=== PATIENT | male | born 1975 | race Caucasian/White ===

== ENCOUNTER 2017-09-19 23:55 | Inpatient (IN) | payer OTHER ==
[~2017-09-19] VITALS: Ht 185.4 cm; Wt 74.3 kg
[2017-09-20] MEDS ORDERED: ONDANSETRON 2MG/ML, 2ML IVPush ONE (01:00)
[2017-09-20] MEDS ORDERED: CLINDAMYCIN PMX 600MG/50ML 50 ML IV ONE (01:00)
[2017-09-20] MEDS ORDERED: SODIUM CHLORIDE FLUSH 10ML SYR IVF ONE (01:00)
[2017-09-20] MEDS ORDERED: morphine SULFATE 10 MG/ML, 1ML IVPush PRN (01:00)
[2017-09-20] MEDS ORDERED: morphine SULFATE 10 MG/ML, 1ML ONE (01:01)
[2017-09-20] MEDS ORDERED: ONDANSETRON 2MG/ML, 2ML ONE ×2 (01:02→13:53)
[2017-09-20] MEDS ORDERED: CLINDAMYCIN PMX 600MG/50ML 50 ML ONE (01:02)
[2017-09-20 01:05] LABS: HEMATOCRIT 41.9 % (39.2-51.8); HEMOGLOBIN 14.3 g/dL (13.7-18.0); WHITE BLOOD COUNT 14.2 x10^3/uL (3.4-10)
[2017-09-20 01:15] LABS: BLOOD UREA NITROGEN 18 mg/dL (7-18)
[2017-09-20] MEDS ORDERED: BACITRACIN ZINC OINT 500U/GM, 0.9 GM ONE (01:31)
[2017-09-20] MEDS ORDERED: ENOXAPARIN 40 MG/0.4 ML SQ SCH (02:00)
[2017-09-20] MEDS ORDERED: LORazepam 2 MG/ML, 1ML IM PRN (02:00)
[2017-09-20] MEDS: CLINDAMYCIN PMX 900MG/50ML 100 ML IV SCH ×3 (02:28→18:26)
[2017-09-20] MEDS: HYDROmorphone 1 MG/ML, 1ML IM PRN ×2 (03:36→05:13)
[2017-09-20 09:01] VITALS: BP 123/82
[2017-09-20] MEDS: SODIUM CHLORIDE FLUSH 10ML SYR IVF SCH ×2 (09:11→21:00)
[2017-09-20] MEDS ORDERED: KETOROLAC 30 MG/1 ML IVPush STA (09:55)
[2017-09-20] MEDS: HYDROmorphone 1 MG/ML, 1ML IV PRN ×2 (11:32→11:43)
[2017-09-20] MEDS ORDERED: D5%-0.45NACL+KCL 20MEQ 1,000 ML IV SCH (12:00)
[2017-09-20] MEDS: D5%-0.9% NACL+KCL 20MEQ 1,000 ML IV SCH ×2 (12:55→19:54)
[2017-09-20] MEDS ORDERED: FENTANYL PF 100 MCG/2ML ONE ×2 (13:24→13:26)
[2017-09-20] MEDS ORDERED: MIDAZOLAM 1 MG/ML, 2ML ONE (13:24)
[2017-09-20] MEDS ORDERED: ONDANSETRON 2MG/ML, 2ML IVPush PRN (13:30)
[2017-09-20] MEDS ORDERED: HYDROmorphone 1 MG/ML, 1ML IV PRN (13:30)
[2017-09-20] MEDS ORDERED: FENTANYL PF 100 MCG/2ML IV PRN (13:30)
[2017-09-20] MEDS ORDERED: PROPOFOL 10 MG/ML, 20ML ONE (13:52)
[2017-09-20] MEDS ORDERED: DEXAMETHASONE 4 MG/ML, 1ML ONE (13:52)
[2017-09-20] MEDS ORDERED: HYDROmorphone 1 MG/ML, 1ML ONE (13:52)
[2017-09-20] MEDS ORDERED: EPINEPHRINE 1 MG/ML, 1ML ONE (13:56)
[2017-09-20] MEDS ORDERED: BUPIVACAINE/PF 0.5% ONE (13:56)
[2017-09-20] MEDS ORDERED: HYDROcodone/APAP 7.5-325MG/15ML UDC PO PRN (15:00)
[2017-09-20] MEDS ORDERED: OXYcodone 5 MG/5 ML ORAL.SOL UDC PO PRN (15:00)
[2017-09-20 16:00] VITALS: BP 124/84
[2017-09-20] MEDS: HYDROmorphone 1 MG/ML, 1ML IVPush PRN ×2 (17:06→19:54)
[2017-09-20 18:51] VITALS: BP 122/68
[2017-09-20] MEDS: LORazepam 2 MG/ML, 1ML IVPush PRN (19:54)
[2017-09-21 00:08] VITALS: BP 122/80
[2017-09-21] MEDS: HYDROmorphone 1 MG/ML, 1ML IV PRN ×3 (01:25→21:22)
[2017-09-21] MEDS: CLINDAMYCIN PMX 900MG/50ML 100 ML IV SCH ×3 (03:02→18:10)
[2017-09-21] MEDS: LORazepam 2 MG/ML, 1ML IVPush PRN ×3 (03:21→21:58)
[2017-09-21 04:05] VITALS: BP 123/84
[2017-09-21] MEDS: D5%-0.9% NACL+KCL 20MEQ 1,000 ML IV SCH (04:10)
[2017-09-21 05:35] LABS: WHITE BLOOD COUNT 11.2 x10^3/uL (3.4-10)
[2017-09-21 05:50] LABS: BLOOD UREA NITROGEN 13 mg/dL (7-18)
[2017-09-21 07:25] VITALS: BP 125/74
[2017-09-21] MEDS: ENOXAPARIN 30 MG/0.3 ML SQ SCH ×2 (10:40→21:22)
[2017-09-21] MEDS: KETOROLAC 30 MG/1 ML IVPush SCH ×3 (10:40→21:22)
[2017-09-21 14:05] VITALS: BP 107/68
[2017-09-21 19:25] VITALS: BP 101/71
[2017-09-22 00:50] VITALS: BP 135/86
[2017-09-22] MEDS: CLINDAMYCIN PMX 900MG/50ML 100 ML IV SCH ×3 (01:37→17:43)
[2017-09-22] MEDS: LORazepam 2 MG/ML, 1ML IVPush PRN ×4 (01:38→20:45)
[2017-09-22] MEDS: KETOROLAC 30 MG/1 ML IVPush SCH ×2 (04:35→10:36)
[2017-09-22 07:23] VITALS: BP 116/79
[2017-09-22] MEDS: ENOXAPARIN 30 MG/0.3 ML SQ SCH ×2 (10:36→20:46)
[2017-09-22 14:37] VITALS: BP 116/74
[2017-09-22 20:06] VITALS: BP 122/81
[2017-09-23] MEDS: LORazepam 2 MG/ML, 1ML IVPush PRN ×3 (01:45→09:15)
[2017-09-23] MEDS: CLINDAMYCIN PMX 900MG/50ML 100 ML IV SCH ×2 (01:45→10:00)
[2017-09-23 01:49] VITALS: BP 114/78
[2017-09-23] MEDS ORDERED: TRAZODONE 50MG TABLET PO PRN (02:30)
[2017-09-23] MEDS: HYDROmorphone 1 MG/ML, 1ML IV PRN (09:14)
[2017-09-23] MEDS: ENOXAPARIN 30 MG/0.3 ML SQ SCH (09:15)
== END 2017-09-23 10:23 | disposition left against medical advice (07) | DRG 571 ==
LOC: ED 23:59 → EDIP 09-20 01:40 → 3NW 09-20 02:53
PROVIDERS: ADMIT Hospitalist; ATTEND Hospitalist
PROC: 0JBN0ZZ Excision of Right Lower Leg Subcutaneous Tissue and Fascia, Open Approach (ICD-10-PCS; principal; 2017-09-20 13:30)
DX: L02.415 Cutaneous abscess of right lower limb (principal); I96 Gangrene, not elsewhere classified; F11.20 Opioid dependence, uncomplicated; L02.92 Furuncle, unspecified; F12.90 Cannabis use, unspecified, uncomplicated; Z96.643 Presence of artificial hip joint, bilateral; Z88.5 Allergy status to narcotic agent; Z83.3 Family history of diabetes mellitus; F17.210 Nicotine dependence, cigarettes, uncomplicated; L02.93 Carbuncle, unspecified; M91.10 Juvenile osteochondrosis of head of femur [Legg-Calve-Perthes], unspecified leg; Z86.14 Personal history of Methicillin resistant Staphylococcus aureus infection; F41.9 Anxiety disorder, unspecified; F15.10 Other stimulant abuse, uncomplicated
CPT/HCPCS: 36415; 80048; 82040; 85025; 87070; 87075; 87077; 87186; 87205; 96365; 96375; J0171; J1100; J1170; J1650; J1885; J2250; J2405; J2704; J3010; J3490; J2060; J2270; J3480